=== PATIENT | female | born 1965 | race Caucasian/White ===

== ENCOUNTER 2017-12-02 19:41 | Emergency (ER) | payer OTHER ==
[~2017-12-02] VITALS: Ht 157.5 cm; Wt 120.2 kg
[2017-12-02] MEDS ORDERED: ASPIRIN 81 MG TABLET CHEW ONE (20:26)
[2017-12-02] MEDS ORDERED: LORazepam 1MG TABLET ONE (20:26)
[2017-12-02] MEDS ORDERED: ASPIRIN 325 MG TABLET PO ONE (20:30)
[2017-12-02] MEDS ORDERED: LORazepam 1MG TABLET PO ONE (20:30)
[2017-12-02 20:37] LABS: BASOPHILS # (AUTO) 0.02 x10^3/uL (0-0.1); BASOPHILS % (AUTO) 0 % (0-1); EOSINOPHILS # (AUTO) 0.32 x10^3/uL (0-0.4); EOSINOPHILS % (AUTO) 3 % (1-7); LYMPHOCYTES # (AUTO) 2.61 x10^3/uL (1-3.4); LYMPHOCYTES % (AUTO) 24 % (22-44); MD NO; MEAN CORPUSCULAR HEMOGLOBIN 29.2 pg (27.0-34.8); MEAN CORPUSCULAR HGB CONC 34.1 g/dL (32.4-35.8); MEAN CORPUSCULAR VOLUME 85.7 fL (80-100); MEAN PLATELET VOLUME 7.8 fL (7.4-10.4); MONOCYTES # (AUTO) 0.81 x10^3/uL (0.2-0.8); MONOCYTES % (AUTO) 8 % (2-9); NEUTROPHILS # (AUTO) 7.12 x10^3/uL (1.8-6.8); NEUTROPHILS % (AUTO) 65 % (42-75); PLATELET COUNT 248 x10^3/uL (130-400); RED BLOOD COUNT 5.37 x10^6/uL (3.82-5.3); RED CELL DISTRIBUTION WIDTH 13.8 % (9.6-15.2)
[2017-12-02 20:43] LABS: ALANINE AMINOTRANSFERASE 27 U/L (12-78); ALBUMIN 3.5 g/dL (3.4-5.0); ANION GAP 9 mmol/L (5-15); CALCIUM 8.8 mg/dL (8.5-10.1); CHLORIDE 109 mmol/L (98-107); CREATININE 0.79 mg/dL (0.55-1.02)
[2017-12-02 20:47] LABS: ALKALINE PHOSPHATASE 101 U/L (45-117); BILIRUBIN,TOTAL 0.6 mg/dL (0.2-1.0); TOTAL PROTEIN 7.7 g/dL (6.4-8.2)
[2017-12-02 20:57] LABS: TROPONIN I < 0.015 ng/mL (0.000-0.045)
[2017-12-02 22:18] VITALS: BP 162/90
== END 2017-12-02 22:20 | disposition home or self-care (01) ==
LOC: ED 22:00
DX: R06.00 Dyspnea, unspecified (principal); R60.9 Edema, unspecified
CPT/HCPCS: 36415; 71045; 80053; 83880; 84484; 85025; 93005; 93970; 99285

== ENCOUNTER 2018-07-30 10:34 | Emergency (ER) | payer OTHER ==
[~2018-07-30] VITALS: Ht 160 cm; Wt 117.6 kg
[2018-07-30] MEDS ORDERED: PROCHLORPERAZINE 5 MG/ML, 2ML IVPush ONE (11:00)
[2018-07-30] MEDS ORDERED: SODIUM CHLORIDE FLUSH 10ML SYR IVF ONE (11:00)
[2018-07-30] MEDS ORDERED: DIPHENHYDRAMINE 50 MG/ML, 1ML IVPush ONE (11:00)
--- NOTE | 2018-07-30 11:22 | NUR ---
TO ROOM FROM LOBBY. NAD.
[2018-07-30] MEDS ORDERED: PROCHLORPERAZINE 5 MG/ML, 2ML ONE (12:14)
[2018-07-30] MEDS ORDERED: DIPHENHYDRAMINE 50 MG/ML, 1ML ONE (12:14)
--- NOTE | 2018-07-30 12:50 | NUR ---
pt medicated per order. pt appears more comfortable at this time.
[2018-07-30 12:51] VITALS: BP 159/49
== END 2018-07-30 14:19 | disposition home or self-care (01) ==
LOC: ED 13:36
DX: G43.909 Migraine, unspecified, not intractable, without status migrainosus (principal); E11.9 Type 2 diabetes mellitus without complications; Z87.891 Personal history of nicotine dependence
CPT/HCPCS: 70450; 93005; 96374; 96375; 99284; J0780; J1200

== ENCOUNTER → 2019-06-06 | Outpatient (CLI) | payer OTHER | END | disposition home or self-care (01) | LOC: CFH 12:14 | PROVIDERS: ATTEND Nurse Practitioner | DX: M25.561 Pain in right knee (principal); M79.89 Other specified soft tissue disorders ==

== ENCOUNTER 2019-09-02 18:47 | Emergency (ER) | payer BC, OTHER ==
[~2019-09-02] VITALS: Ht 160 cm; Wt 125.6 kg
[2019-09-02] MEDS ORDERED: PROPANOLOL PO (19:22)
--- NOTE | 2019-09-02 19:27 | NUR ---
REPORT RECEIVED FROM BI CORNELL. PLAN OF CARE DISCUSSED. FIRST CONTACT WITH PATIENT: THIS IS A 53 YO FEMALE COMING IN FOR LEFT SIDED FLANK PAIN STARTING "AFTER LUNCH TODAY". PATIENT APPEARS TEARY, SHORT AND RAPID BREATHING NOTED DUE TO PAIN, UNLABORED. DENIES SOB/ DENIES CP. NO PAIN WITH URINATION. A&OX4. VSS, HYPERTENSIVE IN TRIAGE. SPO2 AND BP MONITORING IN PLACE. CALL LIGHT IN REACH. PIV PLACED
[2019-09-02 19:30] LABS: BASOPHILS # (AUTO) 0.02 x10^3/uL (0-0.1); BASOPHILS % (AUTO) 0 % (0-1); EOSINOPHILS # (AUTO) 0.18 x10^3/uL (0-0.4); EOSINOPHILS % (AUTO) 1 % (1-7); LYMPHOCYTES # (AUTO) 3.16 x10^3/uL (1-3.4); LYMPHOCYTES % (AUTO) 22 % (22-44); MD NO; MEAN CORPUSCULAR HEMOGLOBIN 29.7 pg (27.0-34.8); MEAN CORPUSCULAR HGB CONC 33.5 g/dL (32.4-35.8); MEAN CORPUSCULAR VOLUME 88.7 fL (80-100); MEAN PLATELET VOLUME 7.8 fL (7.4-10.4); MONOCYTES # (AUTO) 0.59 x10^3/uL (0.2-0.8); MONOCYTES % (AUTO) 4 % (2-9); NEUTROPHILS # (AUTO) 10.14 x10^3/uL (1.8-6.8); NEUTROPHILS % (AUTO) 72 % (42-75); PLATELET COUNT 273 x10^3/uL (130-400); RED BLOOD COUNT 5.52 x10^6/uL (3.82-5.3); RED CELL DISTRIBUTION WIDTH 13.9 % (9.6-15.2)
[2019-09-02] MEDS ORDERED: MORPHINE SULFATE 4 MG/ML, 1ML IVPush PRN (19:30)
[2019-09-02] MEDS ORDERED: SODIUM CHLORIDE FLUSH 10ML SYR IVF ONE (19:30)
[2019-09-02] MEDS ORDERED: ONDANSETRON 2MG/ML, 2ML IVPush ONE (19:30)
[2019-09-02] MEDS ORDERED: MORPHINE SULFATE 4 MG/ML, 1ML ONE (19:31)
[2019-09-02] MEDS ORDERED: ONDANSETRON 2MG/ML, 2ML ONE (19:31)
[2019-09-02 19:39] LABS: ANION GAP 10 mmol/L (5-15); CALCIUM 8.9 mg/dL (8.5-10.1); CHLORIDE 105 mmol/L (98-107); CREATININE 0.73 mg/dL (0.55-1.02)
[2019-09-02 19:49] LABS: ALANINE AMINOTRANSFERASE 24 U/L (12-78); ALBUMIN 3.7 g/dL (3.4-5.0)
[2019-09-02 19:50] LABS: ALKALINE PHOSPHATASE 123 U/L (45-117); BILIRUBIN,TOTAL 0.7 mg/dL (0.2-1.0); TOTAL PROTEIN 8.8 g/dL (6.4-8.2)
--- NOTE | 2019-09-02 20:05 | NUR ---
PATIENT TO IMAGING
--- NOTE | 2019-09-02 20:23 | NUR ---
PATIETN AMBULATORY WITH STEADY GAIT TO RESTROOM. UA CUP PROVIDED
[2019-09-02] MEDS ORDERED: OMNIPAQUE 350 MG/ML, 100ML BOTTLE ONE (20:27)
--- NOTE | 2019-09-02 20:53 | NUR ---
UA COLLECTED AND SENT
[2019-09-02 21:25] LABS: MICROSCOPIC AUTO
[2019-09-02 21:26] LABS: CULTURE INDICATED? YES
[2019-09-02 22:03] VITALS: BP 120/75
[2019-09-02] MEDS ORDERED: CYCLOBENZAPRINE 10 MG TABLET ONE (22:09)
--- NOTE | 2019-09-02 22:17 | NUR ---
Patietn medicated per emar, tolerated well. Patient given discharge instructions and they have confirmed that they understand the instructions. Patient ambulatory with steady gait.
[2019-09-02] MEDS ORDERED: CYCLOBENZAPRINE 10 MG TABLET PO ONE (22:30)
== END 2019-09-02 22:19 | disposition home or self-care (01) ==
LOC: ED 19:30
DX: N30.00 Acute cystitis without hematuria (principal); R10.9 Unspecified abdominal pain; I10 Essential (primary) hypertension; E11.9 Type 2 diabetes mellitus without complications; G43.909 Migraine, unspecified, not intractable, without status migrainosus; Z87.891 Personal history of nicotine dependence; Z90.89 Acquired absence of other organs
CPT/HCPCS: 36415; 74177; 80053; 81001; 83690; 85025; 87086; 96374; 96375; 99285; J2270; J2405; Q9967

== ENCOUNTER → 2021-03-18 | Outpatient (CLI) | payer BC | END | disposition home or self-care (01) | LOC: RAD 18:16 | PROVIDERS: ATTEND Nurse Practitioner Family | DX: M79.89 Other specified soft tissue disorders (principal) ==